=== PATIENT | male | born 1980 | race Caucasian/White ===

== ENCOUNTER → 2019-06-14 18:29 | Outpatient (BNVA) | payer OTHER, SELFPAY | PROVIDERS: Visit Provider Nurse Practitioner Family | DX: M54.2 Cervicalgia (principal) | CPT/HCPCS: 72040 ==

== ENCOUNTER 2019-07-08 09:03 | Outpatient (RCR) | payer OTHER, SELFPAY | END 2019-07-08 23:59 | disposition home or self-care (01) | LOC: SPT 09:03 | PROVIDERS: Referring Provider Family Medicine; Visit Provider Family Medicine | DX: M54.12 Radiculopathy, cervical region (principal) | CPT/HCPCS: 97032; 97161 ==

== ENCOUNTER 2019-07-09 06:00 | Outpatient (RCR) | payer OTHER, SELFPAY | END 2019-08-06 23:59 | disposition home or self-care (01) | LOC: SPT 06:00 | PROVIDERS: Referring Provider Family Medicine; Visit Provider Family Medicine | DX: M54.12 Radiculopathy, cervical region (principal) | CPT/HCPCS: 97032; 97110; 97140 ==

== ENCOUNTER 2019-10-06 08:55 | Outpatient (CLI) | payer MEDICAID, OTHER, SELFPAY ==
--- NOTE | 2019-10-06 09:33 | XR_ITS ---
WS: [id number] PROCEDURE: XR chest 2V* [id number] CLINICAL INFORMATION: CHEST DISCOMFORT, COUGH COMPARISON: None. FINDINGS: Heart: Normal cardiac silhouette. Lungs: 5 mm nodule left upper lobe likely calcified. This can be further evaluated with chest CT. No other suspicious pulmonary parenchymal opacities. No acute pulmonary infiltrates. Bones: Normal visualized bony structures. XR/XR chest 2V* [id number] IMPRESSION: 1. 5 mm nodule left upper lobe likely partially calcified. This can be further evaluated chest CT. 2. Lungs are otherwise well aerated. No acute pulmonary infiltrates. 3. No other significant findings.
== END 2019-10-06 08:56 | disposition home or self-care (01) ==
LOC: RADWPI 09:00
PROVIDERS: PCP Nurse Practitioner Family; Visit Provider Nurse Practitioner Family
DX: R07.89 Other chest pain (principal); R05 Cough; R91.1 Solitary pulmonary nodule
CPT/HCPCS: 71046

== ENCOUNTER 2019-10-10 13:33 | Outpatient (CLI) | payer MEDICAID, SELFPAY ==
--- NOTE | 2019-10-10 13:40 | CT_ITS ---
WS: [id number] CT CHEST WITH INTRAVENOUS CONTRAST HISTORY: LUNG NODULE, TOBACCO, FAMILY HISTORY OF LUNG CANCER TECHNIQUE: Contiguous 5 mm axial imaging performed on the thorax. Coronal and sagittal reformats are submitted. All CT scans at [facility] use at least one of these dose optimization techniq ues: automated exposure control; mA and/or kV adjustment per patient size (includes targeted exams wh ere dose is matched to clinical indication); or iterative reconstruction. CONTRAST: Omnipaque 300; 95 mL IV. DLP: 807.8 mGycm COMPARISON: Chest radiograph 10/06/2019 Lungs and central airway: Lungs are clear and well aerated. Mild pulmonary hyperexpansion with no pne umonia, nodule or mass. Recently described LEFT upper lobe nodule is not identified and may have been on the patient's clothing. Subsegmental areas of atelectasis at the lung bases. Pleura: Normal. No pleural effusion. Heart and pericardium: Normal size heart. No pericardial effusion. Mediastinum and katia: No adenopathy. Increased soft tissue in the anterior mediastinum is probably re sidual thymic tissue.. Vessels: Normal size aortic and pulmonary artery. No coronary artery calcifications. Chest wall and lower neck: No soft tissue masses. Upper abdomen: 2.5 cm cyst upper pole RIGHT kidney. Visualized liver and adrenal glands are negative. Osseous structures: No destructive process. CT/CT chest w con* [id number] IMPRESSION: 1. Mild chronic emphysema. 2. Recently described LEFT upper lobe nodule is not apparent by CT. This may h ave been artifact on the patient's clothing.
[2019-10-10] MEDS: iohexol 300 mg/mL 100 mL Btl IV (13:53)
== END 2019-10-10 13:34 | disposition home or self-care (01) ==
LOC: RADWPI 13:37
PROVIDERS: PCP Nurse Practitioner Family; Visit Provider Nurse Practitioner Family
DX: Z80.1 Family history of malignant neoplasm of trachea, bronchus and lung (principal); R91.1 Solitary pulmonary nodule; F17.200 Nicotine dependence, unspecified, uncomplicated; J43.9 Emphysema, unspecified
CPT/HCPCS: 71260; Q9967

== ENCOUNTER 2020-05-16 09:05 | Outpatient (CLI) | payer BC, MEDICAID, SELFPAY ==
--- NOTE | 2020-05-16 09:27 | XR_ITS ---
WS: [id number] LEFT HAND: 3 VIEW(S) TECHNIQUE: PA, oblique and lateral. HISTORY: PAIN IN LEFT HAND COMPARISON: None available. No acute fracture or dislocation. Mild interphalangeal joint space narrowing. Mild prominence of soft tissue surrounding the fourth and fifth PIP joints. No erosions at the metacarpal heads. No periostitis. XR/XR hand LT min 3V* [id number] IMPRESSION: Degenerative changes with soft tissue edema at the fourth and fifth PIP joints. No erosions.
== END 2020-05-16 09:06 | disposition home or self-care (01) ==
PROVIDERS: PCP Family Medicine; Visit Provider Family Medicine
DX: M79.642 Pain in left hand (principal); R60.0 Localized edema
CPT/HCPCS: 73130

== ENCOUNTER → 2020-06-08 13:54 | Outpatient (BNVA) | payer BC, MEDICAID, SELFPAY | PROVIDERS: PCP Family Medicine; Visit Provider Nurse Practitioner | DX: Z20.828 Contact with and (suspected) exposure to other viral communicable diseases (principal) | CPT/HCPCS: 87635 ==